=== PATIENT | female | born 1990 | race African-American/Black ===

== ENCOUNTER → 2020-06-23 14:45 | Outpatient (BNVA) | payer BC, SELFPAY | PROVIDERS: Visit Provider Family Medicine | DX: Z00.00 Encounter for general adult medical examination without abnormal findings (principal); Z13.6 Encounter for screening for cardiovascular disorders; R03.0 Elevated blood-pressure reading, without diagnosis of hypertension | CPT/HCPCS: 80053; 80061; 85025 ==

== ENCOUNTER → 2020-08-13 13:30 | Outpatient (BNVA) | payer BC, SELFPAY | DX: Z20.828 Contact with and (suspected) exposure to other viral communicable diseases (principal) | CPT/HCPCS: 87635 ==

== ENCOUNTER 2020-12-23 07:12 | Outpatient (CLI) | payer BC, SELFPAY ==
--- NOTE | 2020-12-23 07:00 | XR_ITS ---
WS: [id number] XR cervical spine 3V* [id number] REASON FOR EXAM: neck pain with radiation FINDINGS: Straightening of the normal lordosis of the cervical spine. No vertebral body abnormality identified. There is mild narrowing of the C5-C6 disc space with small anterior osteophytes. Remainder of the int ervertebral disc spaces are unremarkable. XR/XR cervical spine 3V* [id number] IMPRESSION: Minimal findings of degenerative spondylosis at C5-C6.
== END 2020-12-23 07:13 | disposition home or self-care (01) ==
LOC: RAD 07:19
PROVIDERS: PCP Family Medicine; Visit Provider Family Medicine
DX: M54.2 Cervicalgia (principal); M54.12 Radiculopathy, cervical region; M47.812 Spondylosis without myelopathy or radiculopathy, cervical region
CPT/HCPCS: 72040

== ENCOUNTER 2021-01-15 12:56 | Outpatient (CLI) | payer BC, SELFPAY ==
--- NOTE | 2021-01-15 13:01 | MR_ITS ---
WS: [id number] MRI CERVICAL SPINE NONCONTRAST AND CONTRAST TECHNIQUE: Sagittal T1, T2 and STIR imaging. Axial T2, gradient, and fiesta imaging. Post gadolinium imaging was obtained. CLINICAL INFORMATION: abnormal x ray COMPARISON: None. FINDINGS: Straightening of the normal cervical lordosis. No high-grade central canal stenosis. Cord signal is n ormal. No abnormal gadolinium enhancement. No suspicious lesions in the cervical cord. No enhancing l esions. No evidence of cord atrophy. Mild congenital central canal stenosis. C2-C3: Mild osteophytic ridging. Mild left and no significant right foraminal narrowing. C3-C4: Mild endplate osteophytic ridging. Mild bilateral bony foraminal narrowing left greater than r ight. Spinal canal is patent. C4-C5: Mild disc osteophyte complex with endplate ridging. Mild central canal stenosis. Mild to moder ate bilateral bony foraminal narrowing. Mild facet arthropathy. C5-C6: Disc osteophyte complex with endplate ridging. Mild central canal stenosis. Mild bilateral bon y foraminal narrowing. Mild facet arthropathy. C6-C7: Disc osteophyte complex with endplate ridging. Spinal canal is patent. Foramen are patent. C7-T1: No significant disc bulging. Spinal canal and foramen are patent. Visualized brain stem structures: Normal. Prevertebral soft tissues: Normal. A few prominent cervical chain lymph nodes likely reactive. MR/MR cervical spine wo/w [id number] IMPRESSION: 1. Straightening of the normal cervical lordosis with mild congenital spinal c anal narrowing. 2. Cord signal is normal. No high-grade central canal stenosis. 3. No enhancing lesions within the cervical cord. 4. Mild central canal stenosis C4-C6 as described above. 5. Mild bony foraminal narrowing more prominent at bilateral C3-C4, bilateral C4-5, and bilateral C5-6.
[2021-01-15] MEDS: gadobenate dimeglumine 20 mL vial IV (13:48)
== END 2021-01-15 12:57 | disposition home or self-care (01) ==
LOC: RADSHAW 12:57
PROVIDERS: PCP Family Medicine; Visit Provider Family Medicine
DX: R93.89 Abnormal findings on diagnostic imaging of other specified body structures (principal); M54.12 Radiculopathy, cervical region; M48.02 Spinal stenosis, cervical region
CPT/HCPCS: 72156; A9577

== ENCOUNTER → 2021-01-26 08:35 | Outpatient (BNVA) | payer BC, SELFPAY | PROVIDERS: PCP Family Medicine; Referring Provider Family Medicine; Visit Provider Anesthesiology Pain Medicine | DX: G89.29 Other chronic pain (principal); M25.511 Pain in right shoulder; M54.12 Radiculopathy, cervical region; M47.812 Spondylosis without myelopathy or radiculopathy, cervical region; M50.90 Cervical disc disorder, unspecified, unspecified cervical region; M79.601 Pain in right arm; M79.602 Pain in left arm; F12.90 Cannabis use, unspecified, uncomplicated | CPT/HCPCS: 99205 ==

== ENCOUNTER 2021-02-26 06:00 | Outpatient (RCR) | payer BC, SELFPAY | END 2021-03-28 23:59 | disposition home or self-care (01) | LOC: SPT 06:00 | PROVIDERS: PCP Family Medicine; Visit Provider Anesthesiology Pain Medicine | DX: G89.29 Other chronic pain (principal); M54.2 Cervicalgia | CPT/HCPCS: 97110; 97161 ==

== ENCOUNTER 2021-03-17 12:00 | Outpatient (CLI) | payer BC, SELFPAY | END 2021-03-17 12:01 | disposition home or self-care (01) | LOC: SLEEP 03-18 09:50 | PROVIDERS: PCP Family Medicine; Visit Provider Family Medicine | DX: G47.10 Hypersomnia, unspecified (principal) | CPT/HCPCS: G0399 ==

== ENCOUNTER → 2021-03-25 08:46 | Outpatient (BNVA) | payer BC, SELFPAY | PROVIDERS: PCP Family Medicine; Visit Provider Anesthesiology Pain Medicine | DX: F41.8 Other specified anxiety disorders (principal); G89.29 Other chronic pain; G47.33 Obstructive sleep apnea (adult) (pediatric); M47.812 Spondylosis without myelopathy or radiculopathy, cervical region; I10 Essential (primary) hypertension; M50.90 Cervical disc disorder, unspecified, unspecified cervical region; M54.12 Radiculopathy, cervical region; Z68.41 Body mass index [BMI] 40.0-44.9, adult; F17.219 Nicotine dependence, cigarettes, with unspecified nicotine-induced disorders; M25.512 Pain in left shoulder; Z71.6 Tobacco abuse counseling; Z71.89 Other specified counseling | CPT/HCPCS: 80053; 80061; 83036; 99213; 99214 ==

== ENCOUNTER 2021-03-29 06:00 | Outpatient (RCR) | payer BC, SELFPAY | END 2021-04-27 23:59 | disposition home or self-care (01) | LOC: SPT 06:00 | PROVIDERS: PCP Family Medicine; Visit Provider Anesthesiology Pain Medicine | DX: M54.2 Cervicalgia (principal); G89.29 Other chronic pain | CPT/HCPCS: 20560; 97110; 97530 ==

== ENCOUNTER 2021-04-15 07:34 | Emergency (ER) | payer BC, SELFPAY ==
[2021-04-15 07:36] VITALS: BP 155/83; PULSE 78; RESP 21; TEMP 36.1; O2SAT 100; BMI 41.5
--- NOTE | 2021-04-15 07:44 | W.ED.ABDPA2 ---
HPI - Abdominal Pain General: Chief Complaint: Abdominal Pain Stated Complaint: UCC sent PT possible Reaction to Meds Time Seen by Provider: 04/15/21 07:44 History of Present Illness: HPI narrative: 31-year-old female presents emergency room complaining abdominal pain. Patient has pelvic and lower abdominal pain that began overnight. She said several episodes of vomiting. No hematochezia melena hematemesis coffee-ground emesis no dysuria urgency or frequency. MD elicited complaint: abdominal pain Onset (ago): hour(s) Pain Consistency: constant Location: Diffuse Severity: moderate Quality: cramping Radiation: none Exacerbating factors: nothing Relieving factors: nothing Associated Symptoms: Reports GI cramping and poor appetite; Denies anorexia, belching, bloating, change in bowel habits, change in stool character, chills, coffee ground emesis, constipation, diarrhea, dyspepsia, dysuria, excessive flatus, fever(s), heartburn, hematochezia, hematuria, hematemesis, fecal incontinence, loose stools, melena, nausea, syncope and vomiting Review of Systems Const: Denies: fever(s) or chills ENMT: Denies: throat pain, ear or mastoid pain, nasal discharge or nasal congestion Card: Denies: syncope Resp: Denies: dyspnea, productive cough or non-productive cough GI: Reports: GI cramping; Denies: nausea, vomiting, hematemesis, coffee ground emesis, heartburn, diarrhea, constipation, bloating, belching, excessive flatus, fecal incontinence, change in bowel habits, change in stool character, hematochezia or melena : Denies: dysuria or hematuria Skin/Breast: Denies: rash or pruritus PFSH ED PFSH: Medical History Depression with anxiety Surgical History H/O section Times x 2 H/O knee surgery Left - removed a sewing needle H/O tubal ligation Family History Other Addiction CAD (coronary artery disease) Hypertension Psychiatric illness Social History Smoking and tobacco status: current every day smoker cigarettes Packs smoked per day: 0.50 Second hand smoke exposure: No Alcohol intake: current Alcohol intake frequency: holidays/special occasions only Desire information about alcohol rehabilitation?: No Physical Exam Const: COMMON NORMALS: patient oriented x3 and alert GENERAL APPEARANCE: cooperative, comfortable, well kempt and well developed NUTRITIONAL APPEARANCE: obese ORIENTATION/CONSCIOUSNESS: Yes awake, Yes oriented to person and Yes oriented to place HENMT: COMMON NORMALS: normocephalic, atraumatic, EAC's normal, TM's normal bilaterally, Normal external nose present, moist oral mucous membranes and oropharynx normal HEAD & SCALP: normocephalic and atraumatic NOSE: Normal external nose present EXTERNAL AUDITORY CANAL: EAC's normal TYMPANIC MEMBRANE: TM's normal bilaterally MOUTH: Normal oral and palatal mucosa present, lip normal and tongue normal THROAT: posterior oropharynx normal and tonsils normal Eye: COMMON NORMALS: Equal, round and reactive pupils present, EOMs intact bilaterally, conjunctivae normal and no scleral icterus CONJUNCTIVA: Yes conjunctivae normal PUPIL: Yes Equal, round and reactive pupils present Neck/C-Spine: COMMON NORMALS: full ROM, no lymphadenopathy, supple, no meningeal signs and Thyroid normal THYROID: Thyroid normal and asymmetrical Lymph: LYMPHATIC: no lymphadenopathy noted Resp: COMMON NORMALS: normal respiratory effort, No retractions, No use of accessory muscles and clear to auscultation bilaterally AUSCULTATION: clear to auscultation bilaterally Cardio: COMMON NORMALS: regular rate and regular rhythm RATE: regular rate RHYTHM: regular rhythm HEART SOUNDS: no murmurs GI: COMMON NORMALS: Normal to inspection, nondistended, normoactive bowel sounds present, Soft to palpation and No hepatosplenomegaly present PALPATION: Yes Soft to palpation and Yes No hepatosplenomegaly present : COMMON NORMALS: Yes no CVA tenderness BLADDER/KIDNEY EXAM: Yes no CVA tenderness Back/Pelvis: COMMON NORMALS: no CVA tenderness LUMBAR SPINE/LOWER BACK: Yes normal to inspection Extremity: COMMON NORMALS: no clubbing, cyanosis or edema, no calf tenderness and no pedal edema Neuro: COMMON NORMALS: patient oriented x3 SENSORIUM/ORIENTATION: Yes alert, Yes oriented to person and Yes oriented to place MENINGEAL SIGNS: Yes no meningeal signs Psych: APPEARANCE: Yes well kempt Skin: COMMON NORMALS: no rashes or lesions noted and turgor normal GENERAL SKIN EXAM: no rashes or lesions noted and turgor normal Course Vital Signs: Vital signs: Vital Signs Temperature 96.9 F L 04/15/21 07:36 Pulse Rate 75 04/15/21 08:02 Respiratory Rate 18 04/15/21 08:02 Blood Pressure 134/80 04/15/21 08:02 Pulse Oximetry 100 04/15/21 08:02 MDM - Abdominal Pain MDM Narrative: Medical decision making narrative: Reviewed imaging and labs discussed with the patient. We will discharge her home with hydroxyzine Zofran and Protonix. She is having a lot of anxiety over this issue. Suspect she may need to get further evaluation either with Becki or GI she is going to follow-up through her primary care doctor worsening problems she can return to the emergency room for now recommended she do clear liquid diet for 24 to 48 hours and advance return if has problems. Lab Data: Labs: Lab Results 04/15/21 04/15/21 04/15/21 08:20 08:20 08:40 WBC 12.3 10^3/uL H 10 ^3/uL (4.0-10.0) RBC 4.10 10^6/uL 10^6 /uL (4.1-5.3) Hgb 12.0 g/dL g/dL (11.5-15.3) Hct 36.4 % L % (37.0-47.0) MCV 88.8 fl fl (81-99) MCH 29.3 pg pg (28.0-34.0) MCHC 33.0 g/dL g/dL (30.0-36.0) RDW 13.2 % % (12.1-15.1) Plt Count 247 10^3/cmm 10^3 /cmm (130-400) MPV 11.5 fL H fL (7.4-10.4) Neut % (Auto) 86.5 % % Lymph % (Auto) 8.9 % % [place]quois % (Auto) 3.6 % % Eos % (Auto) 0.6 % % Baso % (Auto) 0.2 % % Neut # (Auto) 10.66 10^3/uL H 1 0^3/uL (1.8-7.7) Lymph # (Auto) 1.1 10^3/uL 10^3/ uL (0.8-4.8) [place] # (Auto) 0.5 10^3/uL 10^3/ uL (0.2-0.9) Eos # (Auto) 0.1 10^3/uL 10^3/ uL (0.0-0.8) Baso # (Auto) 0.0 10^3/uL 10^3/ uL (0.0-0.1) Nucleated RBC % (a uto) 0 % % Nucleated RBCs # 0.0 /100WBC /100W BC Sodium 136 mmol/L mmol/L (136-145) Potassium 3.2 mmol/L L mmol /L (3.5-5.1) Chloride 98 mmol/L mmol/L (98-107) Carbon Dioxide 21 mmol/L L mmol/ L (22-29) Anion Gap 20.2 H (5-19) BUN 8 mg/dL mg/dL (6-20) Creatinine 0.6 mg/dL mg/dL (0.5-0.9) GFR Calculation 143.0 mL/min H mL /min (90-130) Glucose 111 mg/dL mg/dL (65-115) Calculated Osmolal ity 281 mOsm/kg L mOs m/kg (285-295) Calcium 9.0 mg/dL mg/dL (8.5-10.5) Total Bilirubin 0.3 mg/dL mg/dL (0.15-1.2) AST 22 U/L U/L (0-32) ALT 30 U/L U/L (0-33) Alkaline Phosphata se 70 IU/L IU/L (35-105) Total Protein 7.9 g/dL g/dL (6.6-8.7) Albumin 4.5 g/dL g/dL (3.5-5.2) Globulin 3.4 g/dL g/dL (1.3-4.6) Lipase 20 U/L U/L (13-60) HCG, Qual Negative (Negative) Urine Color Urine Appearance Urine pH Ur Specific Gravit y Urine Protein Urine Glucose (UA) Urine Ketones Urine Blood Urine Nitrate Urine Bilirubin Prot Sulfosalicyli c Acd Urine Urobilinogen Ur Leukocyte Agatha ase Urine RBC Urine WBC Ur Squamous Epith Cells Amorphous Sediment Urine Bacteria 04/15/21 04/15/21 09:20 10:40 WBC RBC Hgb Hct MCV MCH MCHC RDW Plt Count MPV Neut % (Auto) Lymph % (Auto) [place]ois % (Auto) Eos % (Auto) Baso % (Auto) Neut # (Auto) Lymph # (Auto) [place]ois # (Auto) Eos # (Auto) Baso # (Auto) Nucleated RBC % (a uto) Nucleated RBCs # Sodium Potassium Chloride Carbon Dioxide Anion Gap BUN Creatinine GFR Calculation Glucose Calculated Osmolal ity Calcium Total Bilirubin AST ALT Alkaline Phosphata se Total Protein Albumin Globulin Lipase HCG, Qual Urine Color Red Straw (Yellow) (Yellow) Urine Appearance Cloudy Clear (CLEAR) (CLEAR) Urine pH 8 H 8 H (5-7) (5-7) Ur Specific Gravit y 1.005 1.005 (1.005-1.030) (1.005-1.030) Urine Protein Trace Neg (Negative) (Negative) Urine Glucose (UA) Norm Norm (Normal) (Normal) Urine Ketones Negative Negative (Negative) (Negative) Urine Blood 3+ H 2+ H (Negative) (Negative) Urine Nitrate Negative Negative (Negative) (Negative) Urine Bilirubin Neg Neg (Negative) (Negative) Prot Sulfosalicyli c Acd Negative Negative (Negative) (Negative) Urine Urobilinogen Norm mg/dL mg/dL Norm mg/dL mg/dL (Negative) (Negative) Ur Leukocyte Agatha ase Trace H Negative (Negative) (Negative) Urine RBC Too numerous to c nt /hpf H /hpf 0-4 /hpf H /hpf (0-2) (0-2) Urine WBC 5-10 /hpf H /hpf 0-4 /hpf H /hpf (0-5) (0-5) Ur Squamous Epith Cells 0-4 /hpf H /hpf 5-10 /hpf H /hpf (0-5) (0-5) Amorphous Sediment Not Reportable Not Reportable Urine Bacteria 1+ /hpf H /hpf Trace /hpf /hpf (NONE) (NONE) Discharge Plan Discharge Patient Disposition: Home Clinical Impression: Abdominal pain, Nausea & vomiting Condition: Stable Prescriptions: New Zofran 4 mg tablet 4 mg PO Q6H PRN (Reason: nausea and vomiting) Qty: 20 RF: 0 hydroxyzine HCl 25 mg tablet 25 mg PO QID PRN (Reason: anxiety) Qty: 14 RF: 0 Protonix 40 mg tablet,delayed release (DR/EC) 40 mg PO DAILY 28 Days Qty: 30 RF: 0 No Action methocarbamol 750 mg tablet 750 mg PO BID Qty: 60 RF: 0 hydrochlorothiazide 12.5 mg tablet 12.5 mg PO QAM Qty: 90 RF: 0 nicotine [Nicoderm CQ] 14 mg/24 hr patch 24 hour 1 patch transdermal Q24H Qty: 28 RF: 1 ibuprofen 200 mg Tablet 400 mg PO Q4H PRN (Reason: Pain) RF: 0 albuterol sulfate 90 mcg/actuation HFA aerosol inhaler 2 puff INHALATION Q6H PRN (Reason: Shortness Of Breath) RF: 0 sertraline 100 mg tablet 200 mg PO QAM RF: 0 amlodipine 10 mg tablet 10 mg PO BEDTIME RF: 0 gabapentin 300 mg capsule 300 mg PO QAM RF: 0 Discharge Orders: Discharge ED (Routine); Ordered 04/15/21 Ordered By: Matthew Tee Referrals: Jenifer Chatterjee DO [Primary Care Provider] - Discharge Diet: Clear Liquid Discharge Activity: Increase activity as tolerated Patient Instructions: Abdominal Pain (ED), Opioid Safety Activity Restrictions/Additional Instructions: Clear liquid diet for 24 to 48 hours advance as tolerated ondansetron as needed for nausea. Worsening symptoms return. Coding Level of Care Code ED [employer] for [employer]
[2021-04-15 08:02] VITALS: BP 134/80; PULSE 75; RESP 18; O2SAT 100
[2021-04-15] MEDS: sodium chloride 0.9% 1,000 ML 999 ML IV (08:20)
[2021-04-15] MEDS: ondansetron 2 mg/ML SDV 2 mL 4 MG IVP (08:34)
[2021-04-15 08:44] LABS: Basophils % 0.2 %; Eosinophils # 0.1 10^3/uL (0.0-0.8); Eosinophils % 0.6 %; Hematocrit 36.4 % (37.0-47.0); Lymphocytes # 1.1 10^3/uL (0.8-4.8); Lymphocytes % 8.9 %; Mean Corpuscular Hemoglobin 29.3 pg (28.0-34.0); Mean Corpuscular Volume 88.8 fl (81-99); Mean Platelet Volume 11.5 fL (7.4-10.4); Monocytes # 0.5 10^3/uL (0.2-0.9); Monocytes % 3.6 %; Neutrophils # 10.66 10^3/uL (1.8-7.7); Neutrophils % 86.5 %; Nucleated Red Blood Cells % 0 %; Platelet Count 247 10^3/cmm (130-400); Red Cell Distribution Width 13.2 % (12.1-15.1); White Blood Count 12.3 10^3/uL (4.0-10.0)
[2021-04-15 08:49] LABS: Alanine Aminotransferase 30 U/L (0-33); Albumin Level 4.5 g/dL (3.5-5.2); Alkaline Phosphatase 70 IU/L (35-105); Aspartate Amino Transferase 22 U/L (0-32); Blood Urea Nitrogen 8 mg/dL (6-20); Carbon Dioxide 21 mmol/L (22-29); Chloride 98 mmol/L (98-107); Globulin 3.4 g/dL (1.3-4.6); Glucose 111 mg/dL (65-115); HCG, Serum Qual Negative (Negative); Lipase 20 U/L (13-60); Osmolality Calculated 281 mOsm/kg (285-295); Sodium 136 mmol/L (136-145); Total Bilirubin 0.3 mg/dL (0.15-1.2); Total Protein 7.9 g/dL (6.6-8.7)
--- NOTE | 2021-04-15 08:53 | CT_ITS ---
WS: [id number] Exam: CT abdomen pelvis w con* [id number] Date/Time of Exam: 04/15/2021 9:00 AM Reason For Exam: abd pain DLP: 1715.[address] scans at [facility] use at least one of these dose optimization techniques: automated e xposure control; mA and/or kV adjustment per patient size (includes targeted exams where dose is matc hed to clinical indication); or iterative reconstruction. Small groundglass density in the left lower lobe nonspecific. The liver, gallbladder, stomach, spleen and pancreas appear normal. The abdominal aorta is normal in caliber. The portal vein and IVC are pa tent. Normal kidneys and adrenal glands. No lymphadenopathy. No free air. Small bowel loops are not d ilated. Normal appendix visualized. No significant large bowel abnormality seen. Normal uterus and ov eriln. No pelvic mass or adenopathy. Intact urinary bladder. Small amount of fluid and air in the cer vix. Etiology is undetermined. Regional bony structures are intact. No significant abdominal wall def ect. CT/CT abdomen pelvis w con* [id number] IMPRESSION: 1. No mass, lymphadenopathy or acute finding. 2. Small amount of fluid and air in the cervix. Etiology is undetermined. 3. Small groundglass density in the left lung base probably representing depend ent change.
[2021-04-15 08:54] LABS: Anion Gap 20.2 (5-19); Potassium 3.2 mmol/L (3.5-5.1)
[2021-04-15] MEDS: iohexol 300 mg/mL 100 mL Btl IV (09:15)
[2021-04-15 10:07] LABS: Urine Appearance Cloudy (CLEAR); Urine Color Red (Yellow); pH Urine 8 (5-7)
[2021-04-15 10:08] LABS: Add Urine Microscopic? YES; Bilirubin Urine Neg (Negative); Blood Urine 3+ (Negative); Glucose Urine UA Norm (Normal); Ketones Urine Negative (Negative); Nitrate Urine Negative (Negative); Protein Urine Trace (Negative); RBC Urine TOO NUMEROUS TO CNT /hpf (0-2); Specific Gravity, Urine 1.005 (1.005-1.030); Squamous Epithelial Cell Urine 0-4 /hpf (0-5); Sulfosalicylic Acid Urine Negative (Negative); Urobilinogen Urine Norm (Negative)
[2021-04-15 10:09] LABS: Add Urine Culture? Yes; Bacteria Urine 1+ /hpf
[2021-04-15 10:10] LABS: Leukocyte Esterase Urine Trace (Negative)
[2021-04-15 11:29] LABS: Add Urine Culture? No; Bacteria Urine TRACE /hpf; Bilirubin Urine Neg (Negative); Blood Urine 2+ (Negative); Glucose Urine UA Norm (Normal); Ketones Urine Negative (Negative); Leukocyte Esterase Urine Negative (Negative); Nitrate Urine Negative (Negative); Protein Urine Neg (Negative); RBC Urine 0-4 /hpf (0-2); Specific Gravity, Urine 1.005 (1.005-1.030); Sulfosalicylic Acid Urine Negative (Negative); Urine Appearance Clear (CLEAR); Urine Color Straw (Yellow); Urobilinogen Urine Norm (Negative); WBC Urine 0-4 /hpf (0-5); pH Urine 8 (5-7)
== END 2021-04-15 12:17 | disposition home or self-care (01) ==
PROVIDERS: Emergency Provider Family Medicine; PCP Family Medicine
DX: R10.2 Pelvic and perineal pain (principal); R11.2 Nausea with vomiting, unspecified; F17.210 Nicotine dependence, cigarettes, uncomplicated; F41.8 Other specified anxiety disorders
CPT/HCPCS: 74177; 80053; 81001; 83690; 84703; 85025; 87086; 96361; 96374; 99284; J2405; J7030; Q9967

== ENCOUNTER 2021-04-28 06:00 | Outpatient (RCR) | payer BC, SELFPAY | END 2021-05-28 23:59 | disposition home or self-care (01) | LOC: SPT 06:00 | PROVIDERS: PCP Family Medicine; Visit Provider Anesthesiology Pain Medicine | DX: M54.2 Cervicalgia (principal); G89.29 Other chronic pain | CPT/HCPCS: 97110 ==

== ENCOUNTER 2021-05-29 06:00 | Outpatient (RCR) | payer BC, SELFPAY | END 2021-06-28 23:59 | disposition home or self-care (01) | LOC: SPT 06:00 | PROVIDERS: PCP Family Medicine; Visit Provider Anesthesiology Pain Medicine | DX: M54.2 Cervicalgia (principal); G89.29 Other chronic pain | CPT/HCPCS: 97110 ==

== ENCOUNTER → 2021-07-08 09:30 | Outpatient (BNVA) | payer BC, SELFPAY | PROVIDERS: PCP Family Medicine; Visit Provider Family Medicine | DX: R20.2 Paresthesia of skin (principal); E53.8 Deficiency of other specified B group vitamins | CPT/HCPCS: 82607; 82746; 84443 ==

== ENCOUNTER 2021-11-30 11:16 | Outpatient (CLI) | payer BC, SELFPAY ==
--- NOTE | 2021-11-30 | US_ITS ---
DIAGNOSTIC BILATERAL DIGITAL BREAST TOMOSYNTHESIS MAMMOGRAPHY WITH CAD LEFT breast ultrasound, limited HISTORY: left breast mass COMPARISON: None available. TECHNIQUE: Bilateral craniocaudad, and mediolateral views are submitted with tomosynthesis and SM. LEFT MLO. Computer aided detection utilized. Breast composition: There are scattered areas of fibroglandular density. Area of fibroglandular thickening in the central mid to anterior LEFT breast. There is some very minimal distortion of the soft tissues. This abnormal soft tissue measures 6.8 x 5.9 cm. This is asymmetric to the RIGHT breast. This is the area of the palpable abnormality. No nipple retraction. LEFT breast ultrasound, limited. LEFT breast at 3:00, 3 cm from nipple demonstrates a very poorly visualized hypoechoic mass with shadowing. This is the area of abnormality seen on mammography but also this area is palpable. This measures at least 1.7 x 1.3 x 1.6 cm. The margins are very poorly visualized in this may extend beyond this measurement also. In the LEFT axilla there is a lymph node with an asymmetric cortex. Increased vascularity within the cortex. IMPRESSION: BI-RADS: 4-Suspicious Finding-Biopsy Should Be Considered FOLLOW UP: Biopsy Recommended 1. Ultrasound-guided biopsy recommended of the hypoechoic mass with ill- defined margins at 3:00. 2. Ultrasound-guided biopsy recommended of the mildly abnormal LEFT axillary lymph node. Notified Jenifer Chatterjee DO at 11/30/2021 2:12 PM. Message LEFT on the nurse answering line MTDD
--- NOTE | 2021-11-30 11:26 | MM_ITS ---
WS: [id number] DIAGNOSTIC BILATERAL DIGITAL BREAST TOMOSYNTHESIS MAMMOGRAPHY WITH CAD LEFT breast ultrasound, limited HISTORY: left breast mass COMPARISON: None available. TECHNIQUE: Bilateral craniocaudad, and mediolateral views are submitted with tomosynthesis and SM. AICHA MI MLO. Computer aided detection utilized. Breast composition: There are scattered areas of fibroglandular density. Area of fibroglandular thick ening in the central mid to anterior LEFT breast. There is some very minimal distortion of the soft t issues. This abnormal soft tissue measures 6.8 x 5.9 cm. This is asymmetric to the RIGHT breast. This is the area of the palpable abnormality. No nipple retraction. LEFT breast ultrasound, limited. LEFT breast at 3:00, 3 cm from nipple demonstrates a very poorly visualized hypoechoic mass with shad owing. This is the area of abnormality seen on mammography but also this area is palpable. This measu res at least 1.7 x 1.3 x 1.6 cm. The margins are very poorly visualized in this may extend beyond thi s measurement also. In the LEFT axilla there is a lymph node with an asymmetric cortex. Increased vas cularity within the cortex. MM/[place] [id number] IMPRESSION: BI-RADS: 4-Suspicious Finding-Biopsy Should Be Considered FOLLOW UP: Biopsy Recommended 1. Ultrasound-guided biopsy recommended of the hypoechoic mass with ill-define d margins at 3:00. 2. Ultrasound-guided biopsy recommended of the mildly abnormal LEFT axillary l ymph node. Notified Jenifer Chatterjee DO at 11/30/2021 2:12 PM. Message LEFT on the nurse an swering line.
== END 2021-11-30 11:17 | disposition home or self-care (01) ==
PROVIDERS: PCP Family Medicine; Visit Provider Family Medicine
DX: N63.20 Unspecified lump in the left breast, unspecified quadrant (principal)
CPT/HCPCS: 76642; 77061

== ENCOUNTER 2021-12-20 11:42 | Outpatient (CLI) | payer BC, SELFPAY ==
--- NOTE | 2021-12-20 | US_ITS ---
WS: [id number] ULTRASOUND-GUIDED LEFT BREAST BIOPSY CLINICAL INFORMATION: MASS 3:00 LEFT BREAST COMPARISON: None. FINDINGS: The procedure including risks, benefits, and complications were discussed with the patient who agreed to proceed. Using sterile technique patient was prepped and draped in the usual sterile fashion. Aft er 1% lidocaine utilizing real-time ultrasound guidance 5 14-gauge cores were obtained of the LEFT br east lesion at the 3 o'clock position. Subsequently a titanium clip was placed in the biopsy cavity. No immediate complications. Subsequently the abnormal-appearing LEFT axillary lymph node was biopsied with 3 biopsy samples obtai mikayla. Pathology demonstrates A. Breast, left breast mass , ultrasound-guided needle core biopsies: - Duct ectasia with idiopathic granulomatous mastitis. - Negative for malignancy. - See comment. B. Lymph node, left axilla , ultrasound-guided biopsy: - Reactive follicular hyperplasia. - Negative for malignancy. US/US biopsy lymph node breast/ax IMPRESSION: 1. Uncomplicated ultrasound-guided LEFT breast and LEFT axillary biopsy. 2. The pathology demonstrates idiopathic granulomatous mastitis corresponding to the breast mass. LEFT axillary biopsy demonstrates reactive follicular hyper plasia. No evidence for malignancy 3. Recommend 6 month follow-up LEFT breast diagnostic mammography and ultrasou nd to confirm stability of the LEFT breast lesion and LEFT axillary lymph node. BI-RADS: 2-Benign FOLLOW UP: 6 Month Follow-up
--- NOTE | 2021-12-20 11:49 | US_ITS ---
WS: [id number] ULTRASOUND-GUIDED LEFT BREAST BIOPSY CLINICAL INFORMATION: MASS 3:00 LEFT BREAST COMPARISON: None. FINDINGS: The procedure including risks, benefits, and complications were discussed with the patient who agreed to proceed. Using sterile technique patient was prepped and draped in the usual sterile fashion. Aft er 1% lidocaine utilizing real-time ultrasound guidance 5 14-gauge cores were obtained of the LEFT br east lesion at the 3 o'clock position. Subsequently a titanium clip was placed in the biopsy cavity. No immediate complications. Subsequently the abnormal-appearing LEFT axillary lymph node was biopsied with 3 biopsy samples obtai mikayla. Pathology demonstrates A. Breast, left breast mass , ultrasound-guided needle core biopsies: - Duct ectasia with idiopathic granulomatous mastitis. - Negative for malignancy. - See comment. B. Lymph node, left axilla , ultrasound-guided biopsy: - Reactive follicular hyperplasia. - Negative for malignancy. US/[place] [id number] IMPRESSION: 1. Uncomplicated ultrasound-guided LEFT breast and LEFT axillary biopsy. 2. The pathology demonstrates idiopathic granulomatous mastitis corresponding to the breast mass. LEFT axillary biopsy demonstrates reactive follicular hyper plasia. No evidence for malignancy 3. Recommend 6 month follow-up LEFT breast diagnostic mammography and ultrasou nd to confirm stability of the LEFT breast lesion and LEFT axillary lymph node. BI-RADS: 2-Benign FOLLOW UP: 6 Month Follow-up
== END 2021-12-20 11:43 | disposition home or self-care (01) ==
PROVIDERS: PCP Family Medicine; Visit Provider Family Medicine
DX: N63.21 Unspecified lump in the left breast, upper outer quadrant (principal); N60.42 Mammary duct ectasia of left breast; N61.22 Granulomatous mastitis, left breast
CPT/HCPCS: 19083; 38505; 76942; 88305; 88312

== ENCOUNTER → 2022-09-05 14:03 | Outpatient (BNVA) | payer BC, SELFPAY | PROVIDERS: PCP Family Medicine; Visit Provider Family Medicine | DX: Z13.6 Encounter for screening for cardiovascular disorders (principal) | CPT/HCPCS: 80053; 80061; 82607; 82728; 83550; 85025 ==

== ENCOUNTER → 2023-01-10 15:53 | Outpatient (BNVA) | payer BC, SELFPAY | PROVIDERS: PCP Family Medicine; Visit Provider Family Medicine | DX: K62.5 Hemorrhage of anus and rectum (principal); D50.9 Iron deficiency anemia, unspecified | CPT/HCPCS: 82270; 82728; 83550; 85025 ==

== ENCOUNTER 2023-01-29 16:29 | Emergency (ER) | payer BC, SELFPAY ==
[2023-01-29 16:40] VITALS: BP 176/92; PULSE 86; RESP 17; TEMP 37.2; O2SAT 97; BMI 43.8
--- NOTE | 2023-01-29 16:51 | W.ED.WOUNDLC ---
HPI - Wound/Laceration General: Chief Complaint: Wound/Laceration Stated Complaint: cut tip of finger on right hand Time Seen by Provider: 01/29/23 16:32 History of Present Illness: Patient is a 32-year-old [id number] female that presents to the emergency department after sustaining an avulsion of the soft tissue at the tip of her finger on her left hand. Patient states she was cutting some vegetables?potatoes when she accidentally sliced off the tip of the finger. It is no more than 2 mm deep. At the time of her evaluation here in the emergency department there is no bleeding. Patient is up-to-date on tetanus Review of Systems General: Reports: 10 or more systems reviewed and unremarkable except in HPI and below PFSH ED PFSH: Medical History Acute pharyngitis Upper respiratory infection with cough and congestion Surgical History H/O section Times x 2 H/O knee surgery Left - removed a sewing needle H/O tubal ligation Family History Other Addiction CAD (coronary artery disease) Hypertension Psychiatric illness Social History Smoking and tobacco status: current every day smoker cigarettes Packs smoked per day: 0.50 Second hand smoke exposure: No Alcohol intake: current Alcohol intake frequency: holidays/special occasions only Desire information about alcohol rehabilitation?: No Substance/Drug Use: current Substance/Drug use frequency: daily Physical Exam Const: COMMON NORMALS: no acute distress, patient oriented x3 and alert GENERAL APPEARANCE: cooperative ORIENTATION/CONSCIOUSNESS: Yes awake, Yes oriented to person, Yes oriented to place and Yes oriented to time HENMT: COMMON NORMALS: normocephalic and atraumatic HEAD & SCALP: normocephalic and atraumatic FACE & SINUS: normal facial exam MOUTH: Normal oral and palatal mucosa present THROAT: posterior oropharynx normal Eye: COMMON NORMALS: Equal, round and reactive pupils present, EOMs intact bilaterally, conjunctivae normal and no scleral icterus GENERAL EYE: appearance normal, both eyes and all related structures ALIGNMENT: Yes alignment normal PERIORBITAL: periorbital findings normal CONJUNCTIVA: Yes conjunctivae normal PUPIL: Yes Equal, round and reactive pupils present Neck/C-Spine: COMMON NORMALS: full ROM GENERAL: Yes normal visual inspection Lymph: LYMPHATIC: no lymphadenopathy noted Chest: COMMONS NORMALS: normal inspection of the chest Breast/axilla inspection: Yes no chest deformity, asymmetry, normal contours, no nodules, masses, tenderness Resp: COMMON NORMALS: normal respiratory effort, No retractions and No use of accessory muscles EFFORT & INSPECTION: Yes able to speak in complete sentences and Yes symmetric chest movement Cardio: COMMON NORMALS: Peripheral pulses 2+ throughout PERIPHERAL PULSES: Peripheral pulses 2+ throughout GI: COMMON NORMALS: Normal to inspection, nondistended, normoactive bowel sounds present INSPECTION: Yes normal to inspection RECTAL EXAM: deferred Extremity: COMMON NORMALS: normal to inspection GENERAL: Yes normal exam except as noted Neuro: COMMON NORMALS: patient oriented x3 SENSORIUM/ORIENTATION: Yes alert, Yes oriented to person, Yes oriented to place and Yes oriented to time CRANIAL NERVES: Yes CN normal except as noted Psych: COMMON NORMALS: mental status grossly normal, Normal thought process present, cooperative, activity/motor behavior normal, denies homicidal ideation and denies suicidal ideation THOUGHT PROCESS: Normal thought process present Skin: COMMON NORMALS: no rashes or lesions noted, no wounds and turgor normal GENERAL SKIN EXAM: no rashes or lesions noted and turgor normal Course Vital Signs: Vital signs: Vital Signs Temperature 98.9 F 01/29/23 16:40 Pulse Rate 86 01/29/23 16:40 Respiratory Rate 17 01/29/23 16:40 Blood Pressure 176/92 01/29/23 16:40 Pulse Oximetry 97 01/29/23 16:40 Oxygen Delivery Me thod Room Air 01/29/23 16:40 MDM - Wound/Laceration Medical Decision Making Patient was evaluated in the emergency department due to a fingertip injury. Sustained while cutting vegetables. Patient was very excited to tell me that she does not get any blood in the vegetables. She is up-to-date on tetanus Fortunately the way she cut the tip off it is not salvageable. We are going to dress her with Xeroform and nonstick dressings. I have advised her to keep the area clean and dry. She should use finger condoms when cooking or working with chemicals. Otherwise she can leave it open to help dry it out so it scabs over more quickly. Patient can follow-up with primary care doctor as needed All questions answered Discharge Plan Discharge Patient Disposition: Home Clinical Impression: Fingertip avulsion Condition: Stable Prescriptions: No Action brexpiprazole 2 mg tablet 2 mg PO DAILY Qty: 90 1RF sertraline [Zoloft] 50 mg tablet 50 mg PO DAILY Qty: 90 1RF sertraline [Zoloft] 100 mg tablet 100 mg PO DAILY Qty: 90 1RF Rx Instructions: Take with 50 mg pill ferrous sulfate [Iron (ferrous sulfate)] 325 mg (65 mg iron) tablet 325 mg PO BID Qty: 180 0RF (DME) AUTO-TRIRRATION CPAP SETTING 6-14CM See Rx Instructions .Route .MEDSUPPLY Qty: 1 0RF Rx Instructions: As directed Discharge Orders: Discharge ED (Routine); Ordered 01/29/23 Ordered By: Cholo Mc Referrals: Jenifer Chatterjee DO [Primary Care Provider] - Discharge Diet: Advance as tolerated Discharge Activity: Resume usual activity Patient Instructions: Finger Laceration (ED), Pain Management Coding Level of Care Code ED Dispatcher [employer] for Mamie Segura
== END 2023-01-29 17:10 | disposition home or self-care (01) ==
PROVIDERS: Emergency Provider Nurse Practitioner; PCP Family Medicine
DX: S61.212A Laceration without foreign body of right middle finger without damage to nail, initial encounter (principal); W26.0XXA Contact with knife, initial encounter; Y93.G1 Activity, food preparation and clean up
CPT/HCPCS: 99282

== ENCOUNTER → 2023-02-08 16:00 | Outpatient (BNVA) | payer BC, SELFPAY | PROVIDERS: PCP Family Medicine; Visit Provider Nurse Practitioner Women's Health | DX: N92.6 Irregular menstruation, unspecified (principal) | CPT/HCPCS: 83036; 83525; 84146; 84402; 84439; 84443; 84481 ==

== ENCOUNTER 2023-02-23 14:46 | Outpatient (CLI) | payer BC, SELFPAY ==
--- NOTE | 2023-02-23 14:58 | MM_ITS ---
WS: [id number] BILATERAL 3D TOMOSYNTHESIS DIGITAL DIAGNOSTIC MAMMOGRAPHY WITH CAD CLINICAL INFORMATION: mass left breast F/U HISTORY: 6-month follow-up post biopsy COMPARISON: 12/20/2021 TECHNIQUE: Bilateral CC, MLO, and ML views. FINDINGS: Scattered fibroglandular densities bilaterally. Again seen is the fibroglandular parenchymal thickeni ng in the central LEFT mid anterior breast with associated distortion. This measures approximately 7 x 6 cm in maximum dimension and is unchanged in appearance. Biopsy clip LEFT breast. RIGHT breast is unchanged and unremarkable ULTRASOUND BREAST LEFT TECHNIQUE: Ultrasound left breast focused area of concern. 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 Ultrasound LEFT breast at the 3 o'clock position 3 cm from the nipple. Again seen is the heterogeneou s hypoechoic ill-defined shadowing density which appears slightly improved compared to the prior stud y. This was previously biopsied. No evidence of progression. Findings are stable to improved compared to 12/20/2021 Previously described and biopsied LEFT axillary lymph node is stable in appearance with cortical thic kening. No new or progressed lymph nodes. IMPRESSION: MM/[place] [id number] BI-RADS: 2-Benign FOLLOW UP: Age 42 Recommend annual screen mammography age 42.
== END 2023-02-23 14:47 | disposition home or self-care (01) ==
LOC: RAD 14:47
PROVIDERS: PCP Family Medicine; Visit Provider Family Medicine
DX: N63.21 Unspecified lump in the left breast, upper outer quadrant (principal); N61.23 Granulomatous mastitis, bilateral breast
CPT/HCPCS: 76642; 77062; G0279

== ENCOUNTER 2023-03-08 07:58 | Day surgery (SDC) | payer BC, SELFPAY ==
[2023-03-06 10:24] VITALS: BMI 43.2
--- NOTE | 2023-03-08 08:27 | ANES.PREANE2 ---
Pre-Anesthetic Assessment Height/Weight: Height 1.7 m Weight 125.191 kg Operation Date: 03/08/23 08:45 Proposed Procedures p [id number] egd [id number] colon K92.1 ,D50.9(Not Applicable) - Chandana Rowe DO s Colonoscopy(Not Applicable) - Chandana Rowe DO Familial anesthetic complications: none Was Beta Tim taken within 24 hours: N/A Was Clonidine taken within 24 hours: N/A Social Tobacco and No alcohol daily MJ Exam alert and oriented x 3 Airway Submandibular: within normal limits Cervical ROM: within normal limits Dentition: full History/ROS No significant history except as noted Pulmonary Sleep Apnea CV/HEM Hypertension (doesnt take meds) None reported Hepatic None reported GI None reported Metabolic Morbid Obesity [facility] [place] [facility] [place] None reported Anesthetic Plan ASA status: 3 Anesthesia: Anesthesia Evaluation, General and MAC Medications/Allergies Home Medications Medication Instructions Recorded Confirmed Last Taken Type ferrous sulfate 325 mg (65 mg 325 mg PO BID #180 tabs 09/08/22 03/06/23 03/06/23 Rx iron) tablet (Iron (ferrous sulfate)) AUTO-TRIRRATION CPAP SETTING 6-14CM #1 ea 09/21/22 03/08/23 Unknown Rx brexpiprazole 2 mg tablet 2 mg PO DAILY #90 tabs 11/07/22 03/06/23 03/06/23 Rx sertraline 100 mg tablet (Zoloft) 100 mg PO DAILY #90 tabs 11/07/22 03/06/23 03/06/23 Rx sertraline 50 mg tablet (Zoloft) 50 mg PO DAILY #90 tabs 11/07/22 03/06/23 03/06/23 Rx norelgestromin 150 mcg-e.estradiol 1 patch transdermal Q7D #3 ea 02/09/23 03/06/23 Unknown Rx 35 mcg/24 hr weekly transderm patch (Xulane) Allergies Allergy/AdvReac Type Severity Reaction Status Date / Time No Known Allergies Allergy Verified 03/08/23 08:11 [facility] Anesthesia Medical History Acute pharyngitis Upper respiratory infection with cough and congestion Surgical History H/O section Times x 2 H/O knee surgery Left - removed a sewing needle H/O tubal ligation Family History Other Addiction CAD (coronary artery disease) Hypertension Psychiatric illness Social History Smoking and tobacco status: current every day smoker cigarettes Packs smoked per day: 0.50 Second hand smoke exposure: No Alcohol intake: current Alcohol intake frequency: holidays/special occasions only Desire information about alcohol rehabilitation?: No Substance/Drug Use: current Substance/Drug use frequency: daily Female Reproductive History Date of last menstrual period: 02/26/23 Data Anesthesia Cardiac Studies: No Data to Display
[2023-03-08] MEDS: sodium chloride 0.9% 1,000 ML 30 ML IV (08:33)
[2023-03-08 08:36] VITALS: BP 130/68; PULSE 86; RESP 18; TEMP 36.2; O2SAT 99
--- NOTE | 2023-03-08 08:38 | PM.HP ---
Providers/Chief Complaint Primary Care Provider: Jenifer Chatterjee DO Chief Complaint: K92.1, D50.9 History of Present Illness Obey Wilkinson is a 33 year old female Review of Systems General: Reports: 10 or more systems reviewed and unremarkable except in HPI and below Medications/Allergies Home Medications Medication Instructions Recorded Confirmed Last Taken Type ferrous sulfate 325 mg (65 mg 325 mg PO BID #180 tabs 09/08/22 03/06/23 03/06/23 Rx iron) tablet (Iron (ferrous sulfate)) AUTO-TRIRRATION CPAP SETTING 6-14CM #1 ea 09/21/22 03/08/23 Unknown Rx brexpiprazole 2 mg tablet 2 mg PO DAILY #90 tabs 11/07/22 03/06/23 03/06/23 Rx sertraline 100 mg tablet (Zoloft) 100 mg PO DAILY #90 tabs 11/07/22 03/06/23 03/06/23 Rx sertraline 50 mg tablet (Zoloft) 50 mg PO DAILY #90 tabs 11/07/22 03/06/23 03/06/23 Rx norelgestromin 150 mcg-e.estradiol 1 patch transdermal Q7D #3 ea 02/09/23 03/06/23 Unknown Rx 35 mcg/24 hr weekly transderm patch (Xulane) Allergies Allergy/AdvReac Type Severity Reaction Status Date / Time No Known Allergies Allergy Verified 03/08/23 08:11 PFSH Acute PFSH: Medical History Acute pharyngitis Upper respiratory infection with cough and congestion Surgical History H/O section Times x 2 H/O knee surgery Left - removed a sewing needle H/O tubal ligation Family History Other Addiction CAD (coronary artery disease) Hypertension Psychiatric illness Social History Smoking and tobacco status: current every day smoker cigarettes Packs smoked per day: 0.50 Second hand smoke exposure: No Alcohol intake: current Alcohol intake frequency: holidays/special occasions only Desire information about alcohol rehabilitation?: No Substance/Drug Use: current Substance/Drug use frequency: daily Female Reproductive History: Date of last menstrual period: 02/26/23 Vitals/I&O/Wt Last Vital Signs Temp 97.2 F L 03/08/23 08:36 Pulse 86 03/08/23 08:36 Resp 18 03/08/23 08:36 BP 130/68 03/08/23 08:36 Pulse Ox 99 03/08/23 08:36 O2 Del Method Room Air 03/08/23 08:36 Weight last 48 hrs Weight 276 lb A&P Assessment and plan (1) Iron deficiency anemia: Qualifiers: Iron deficiency anemia type: chronic blood loss Qualified Code(s): D50.0 - Iron deficiency anemia secondary to blood loss (chronic) (2) GI bleed: Plan EGD and colonoscopy Attestations Medical Necessity Statement*: Home Coding Level of Care Code Acute Code for [facility] Fwd Diagnoses Iron deficiency anemia D50.0 Iron deficiency anemia type: chronic blood loss GI bleed K92.2
[2023-03-08 08:42] LABS: OR HCG Qualitative Urine Negative (Negative)
[2023-03-08 09:10] VITALS: BP 167/99; PULSE 93; RESP 16; TEMP 36.2; O2SAT 99
[2023-03-08 09:21] VITALS: BP 141/98; PULSE 93; RESP 16; O2SAT 99
--- NOTE | 2023-03-08 09:21 | ANE.PACU2 ---
Inpatient post-anesthesia follow up: Airway intact: Yes Vital signs: Temperature 97.1 F Pulse Rate 93 Respiratory Rate 16 Blood Pressure 167/99 Pulse Oximetry 99 Oxygen Delivery Me thod Room Air Oxygen Flow Rate Fraction of Inspir ed Oxygen Hydration adequate: Yes Nausea and vomiting: No Pain level: 1 Mental status: Baseline
== END 2023-03-08 09:55 | disposition home or self-care (01) ==
PROVIDERS: Anesthesiology; PCP Family Medicine; Visit Provider Surgery
PROC: 0DJ08ZZ Inspection of Upper Intestinal Tract, Via Natural or Artificial Opening Endoscopic (ICD-10-PCS; CPT 43235; principal; 2023-03-08 08:45)
PROC: 0DJD8ZZ Inspection of Lower Intestinal Tract, Via Natural or Artificial Opening Endoscopic (ICD-10-PCS; CPT 45378; 2023-03-08 08:45)
DX: K92.1 Melena (principal); D50.9 Iron deficiency anemia, unspecified; K64.8 Other hemorrhoids; K44.9 Diaphragmatic hernia without obstruction or gangrene; G47.30 Sleep apnea, unspecified; I10 Essential (primary) hypertension; F17.210 Nicotine dependence, cigarettes, uncomplicated
CPT/HCPCS: 43235; 45378; 81025; 84703; J2704; J3010; J7030

== ENCOUNTER → 2023-03-14 10:18 | Outpatient (BNVA) | payer BC, SELFPAY | PROVIDERS: PCP Family Medicine; Visit Provider Nurse Practitioner Women's Health | DX: N92.6 Irregular menstruation, unspecified (principal); N94.6 Dysmenorrhea, unspecified | CPT/HCPCS: 76830 ==

== ENCOUNTER → 2023-08-08 10:51 | Outpatient (BNVA) | payer BC, SELFPAY | PROVIDERS: PCP Family Medicine; Visit Provider Family Medicine | DX: Z13.6 Encounter for screening for cardiovascular disorders (principal); D50.9 Iron deficiency anemia, unspecified; D50.0 Iron deficiency anemia secondary to blood loss (chronic); I10 Essential (primary) hypertension | CPT/HCPCS: 82728; 83550; 85025 ==

== ENCOUNTER 2023-08-28 09:32 | Emergency (ER) | payer BC, SELFPAY ==
--- NOTE | 2023-08-28 09:44 | XR_ITS ---
WS: [id number] Examination: XR chest 1V portable [id number] Reason for Exam: sob, suspected right middle lobe pneumonitis. Date: August 28, 2023 Comparison: August 29, 2019 Findings: The heart appears prominent which may be related to the AP portable technique. The mediastinum is not widened There is no pulmonary edema or effusion. No dense consolidation is identified. Impression: No dense consolidation is appreciated. PA and lateral films are recommended for better visualization of the right middle lobe as well as the heart size.
--- NOTE | 2023-08-28 09:45 | ED_ITS ---
HPI - SOB/Dyspnea 2 General: Chief Complaint: Allergic Reaction Stated Complaint: possible allergic reaction Time Seen by Provider: 08/28/23 09:36 Source: patient and EMS Mode of arrival: EMS Limitations: other (Patient uncooperative) History of Present Illness: HPI Narrative: Patient is a 33-year-old female presents to ED today via EMS triage as a possible allergic reaction. Patient's only complaint during my assessment is shortness of breath stating I need oxygen . She is satting 100% on room air. She is hyperventilating. She is very uncooperative lying face down on the bed. She does tell me she was at work when symptoms started. She states she ate a Cheese It cracker and some of a green smoothie. Patient denies tongue/lip swelling, rash/itching, or difficulty swallowing. She states she does have a history of anxiety and takes medications for this. No previous allergic reactions. States her whole body feels tingly . MD elicited complaint: shortness of breath Onset (ago): hour(s) Context: anxiety Timing: constant Severity: moderate Exacerbating factors: nothing Relieving factors: nothing Associated symptoms: Reports nausea; Deny abdominal pain, chest congestion, chest pain, extremity pain, fever(s), hemoptysis, orthopnea, palpitations, syncope or vomiting Treatment prior to arrival: none Related Data: Home oxygen amount: none Review of Systems 2 Const: Denies: fever(s), chills, body aches, fatigue or malaise ENMT: Denies: throat pain, uvular edema, enlarged tonsils, odynophagia, hoarseness, mouth pain, swelling of lips/tongue or oral sores Card: Denies: chest pain, palpitations, irregular heart rhythm, edema, swelling of feet/ankles, syncope, pre-syncope, dyspnea on exertion or orthopnea Resp: Reports: dyspnea; Denies: productive cough, non-productive cough, wheezing, stridor, pain on inspiration, change in phlegm color, hemoptysis or chest congestion GI: Reports: nausea; Denies: abdominal pain or vomiting Musc: Denies: neck pain, back pain, extremity pain or joint pain Skin/Breast: Denies: rash Neuro: Reports: other (states her whole body feels tingly ); Denies: headache(s) or weakness in extremities Psych: Reports: anxiety PFSH ED 2 PFSH: Medical History Acute pharyngitis Upper respiratory infection with cough and congestion Surgical History H/O knee surgery Left - removed a sewing needle H/O section Times x 2 H/O tubal ligation Family History Other Addiction CAD (coronary artery disease) Hypertension Psychiatric illness Social History Smoking and tobacco/nicotine status: current every day tobacco/nicotine user cigarettes Packs smoked per day: 0.50 Second hand smoke exposure: No Alcohol intake: current Alcohol intake frequency: holidays/special occasions only Substance/Drug Use: current Substance/Drug use frequency: daily Physical Exam 2 Const: COMMON NORMALS: patient oriented x3, alert and well nourished G ENERAL APPEARANCE: cooperative, anxious and other (uncooperative) NUTRITIONAL APPEARANCE: obese ORIENTATION/CONSCIOUSNESS: Yes awake, Yes oriented to person, Yes oriented to place and Yes oriented to time OTHER: hyperventilating HENMT: MOUTH: Normal oral and palatal mucosa present, lip normal, tongue normal and Normal salivary glands and ducts present THROAT: posterior oropharynx normal and tonsils normal; no uvular edema Eye: GENERAL EYE: appearance normal, both eyes and all related structures Chest: COMMONS NORMALS: normal inspection of the chest and normal palpation of entire chest wall Resp: COMMON NORMALS: clear to auscultation bilaterally EFFORT & INSPECTION: Yes tachypneic, No pursed lip breathing, No labored, No grunting, No stridor, No Actively coughing, No retractions and No uses accessory muscles A USCULTATION: clear to auscultation bilaterally Cardio: COMMON NORMALS: regular rate and regular rhythm RATE: regular rate RHYTHM: regular rhythm Extremity: GENERAL: Yes normal exam except as noted Neuro: TAPAN COMA SCALE: document GCS findings Lotus coma scale eye opening: Spontaneous Lotus coma scale verbal response: Orientated Lotus coma scale motor response: Obey commands Lotus coma scale total score: 15 COMMON NORMALS: patient oriented x3 SENSORIUM/ORIENTATION: Yes alert, Yes oriented to person, Yes oriented to place and Yes oriented to time Skin: COMMON NORMALS: no rashes or lesions noted GENERAL SKIN EXAM: no rashes or lesions noted Course 2 Reevaluation(s): Reevaluation #1: After IV Ativan and Zofran she is sleeping comfortably in NAD. Respirations are normal. Vital Signs: Vital signs: Vital Signs Temperature 97.8 F 08/28/23 09:46 Pulse Rate 69 08/28/23 10:17 Respiratory Rate 16 08/28/23 09:46 Blood Pressure 171/97 08/28/23 10:17 Pulse Oximetry 100 08/28/23 10:17 Oxygen Delivery Me thod Room Air 08/28/23 10:17 MDM - SOB/Dyspnea Medical Decision Making Patient is a 33-year-old female who presents today hyperventilating. Vital signs were stable upon arrival. She was satting 100% on room air. She has no signs or symptoms of anaphylactic reaction. Does have a longstanding history of anxiety. She was given 1mg of Ativan and Zofran and is now resting comfortably in no acute distress. She states she feels much better and would like to go home. Medical Records I reviewed the patient's medical records. Lab Data I reviewed the patient's lab results. 08/28/23 10:15 08/28/23 10:15 Labs/Radiology: Laboratory Results WBC 16.11 10^3/uL (3.29-11.43) H 08/28/23 10:15 RBC 4.56 10^6/uL (3.85-5.65) 08/28/23 10:15 Hgb 10.00 g/dL (11.27-16.99) L 08/28/23 10:15 Hct 34.3 % (36-47) L 08/28/23 10:15 MCV 75.2 fl (85-98) L 08/28/23 10:15 MCH 21.9 pg (27-33) L 08/28/23 10:15 MCHC 29.2 g/dL (30-55) L 08/28/23 10:15 RDW 21.6 % (12.1-15.1) H 08/28/23 10:15 Plt Count 443 10^3/cmm (157-399) H 08/28/23 10:15 MPV 10.8 fL (7.4-10.4) H 08/28/23 10:15 Neut % (Auto) 81.1 % 08/28/23 10:15 Lymph % (Auto) 13.2 % 08/28/23 10:15 [place] % (Auto) 3.5 % 08/28/23 10:15 Eos % (Auto) 1.6 % 08/28/23 10:15 Baso % (Auto) 0.2 % 08/28/23 10:15 Neut # (Auto) 13.05 10^3/uL (1.8-7.7) H 08/28/23 10:15 Lymph # (Auto) 2.1 10^3/uL (0.8-4.8) 08/28/23 10:15 [place] # (Auto) 0.6 10^3/uL (0.2-0.9) 08/28/23 10:15 Eos # (Auto) 0.3 10^3/uL (0.0-0.8) 08/28/23 10:15 Baso # (Auto) 0.0 10^3/uL (0.0-0.1) 08/28/23 10:15 Nucleated RBC % (auto) 0 % 08/28/23 10:15 Nucleated RBCs # 0.0 /100WBC 08/28/23 10:15 Sodium 137 mmol/L (136-145) 08/28/23 10:15 Potassium 3.4 mmol/L (3.5-5.1) L 08/28/23 10:15 Chloride 101 mmol/L (98-107) 08/28/23 10:15 Carbon Dioxide 18 mmol/L (22-29) L 08/28/23 10:15 Anion Gap 21.4 (5-19) H 08/28/23 10:15 BUN 10 mg/dL (6-20) 08/28/23 10:15 Creatinine 0.7 mg/dL (0.5-0.9) 08/28/23 10:15 GFR Calculation 118.1 mL/min (90-130) 08/28/23 10:15 Glucose 130 mg/dL (65-115) H 08/28/23 10:15 Calculated Osmolality 285 mOsm/kg (285-295) 08/28/23 10:15 Calcium 9.1 mg/dL (8.5-10.5) 08/28/23 10:15 Total Bilirubin 0.3 mg/dL (0.15-1.2) 08/28/23 10:15 AST 32 U/L (0-32) 08/28/23 10:15 ALT 31 U/L (0-33) 08/28/23 10:15 Alkaline Phosphatase 75 U/L (35-105) 08/28/23 10:15 Total Protein 8.1 g/dL (6.6-8.7) 08/28/23 10:15 Albumin 4.3 g/dL (3.5-5.2) 08/28/23 10:15 Globulin 3.8 g/dL (1.3-4.6) 08/28/23 10:15 All radiology interpretation(s) finalized by discharge Discharge Plan Discharge Patient Disposition: Home Clinical Impression: Acute hyperventilation syndrome Condition: Stable Prescriptions: No Action Xulane 150-35 mcg/24 hr patch weekly 1 patch transdermal Q7D Qty: 3 0RF Rx Instructions: apply once weekly for 3 weeks of a 4-week cycle (DME) AUTO-TRIRRATION CPAP SETTING 6-14CM See Rx Instructions .Route .MEDSUPPLY Qty: 1 0RF Rx Instructions: As directed Zoloft 100 mg tablet 100 mg PO QAM Rx Instructions: take with 50mg to =150mg amlodipine 5 mg tablet 5 mg PO QAM Iron (ferrous sulfate) 325 mg (65 mg iron) tablet 325 mg PO QAM Zoloft 50 mg tablet 50 mg PO QAM Rx Instructions: take with 100mg to =150mg brexpiprazole 2 mg tablet 2 mg PO QAM Discharge Orders: Discharge ED (Routine); Ordered 08/28/23 Ordered By: Claudia Mendosa Referrals: Jenifer Chatterjee DO [Primary Care Provider] - Patient Instructions: Hyperventilation (ED), Panic Attack (ED) Coding Level of Care Code ED Pediatric Registered Nurse for Mamie Segura
[2023-08-28 09:46] VITALS: BP 157/88; PULSE 80; RESP 16; TEMP 36.6; O2SAT 100
[2023-08-28] MEDS: ondansetron 2 mg/ML SDV 2 mL 4 MG IVP (10:15)
[2023-08-28 10:17] VITALS: BP 171/97; PULSE 69; O2SAT 100
[2023-08-28] MEDS: LORazepam 2 mg/mL INJ 10 mL MDV 1 MG IV (10:18)
[2023-08-28 10:23] LABS: Basophils % 0.2 %; Eosinophils # 0.3 10^3/uL (0.0-0.8); Eosinophils % 1.6 %; Hematocrit 34.3 % (36-47); Lymphocytes # 2.1 10^3/uL (0.8-4.8); Lymphocytes % 13.2 %; Mean Corpuscular HGB Conc 29.2 g/dL (30-55); Mean Corpuscular Hemoglobin 21.9 pg (27-33); Mean Corpuscular Volume 75.2 fl (85-98); Mean Platelet Volume 10.8 fL (7.4-10.4); Monocytes # 0.6 10^3/uL (0.2-0.9); Monocytes % 3.5 %; Neutrophils # 13.05 10^3/uL (1.8-7.7); Neutrophils % 81.1 %; Nucleated Red Blood Cells % 0 %; Platelet Count 443 10^3/cmm (157-399); Red Blood Count 4.56 10^6/uL (3.85-5.65); Red Cell Distribution Width 21.6 % (12.1-15.1); White Blood Count 16.11 10^3/uL (3.29-11.43)
[2023-08-28 10:49] LABS: Alanine Aminotransferase 31 U/L (0-33); Albumin Level 4.3 g/dL (3.5-5.2); Alkaline Phosphatase 75 U/L (35-105); Blood Urea Nitrogen 10 mg/dL (6-20); Calcium 9.1 mg/dL (8.5-10.5); Carbon Dioxide 18 mmol/L (22-29); Chloride 101 mmol/L (98-107); Creatinine Clr Calc Pharmacy 151.3269; Globulin 3.8 g/dL (1.3-4.6); Glomerular Filtration Rate 118.1 mL/min (90-130); Glucose 130 mg/dL (65-115); Osmolality Calculated 285 mOsm/kg (285-295); Sodium 137 mmol/L (136-145); Total Bilirubin 0.3 mg/dL (0.15-1.2); Total Protein 8.1 g/dL (6.6-8.7)
[2023-08-28 10:50] LABS: Anion Gap 21.4 (5-19); Aspartate Amino Transferase 32 U/L (0-32); Potassium 3.4 mmol/L (3.5-5.1)
[2023-08-28 11:10] VITALS: BP 151/71; PULSE 85; O2SAT 96
== END 2023-08-28 11:12 | disposition home or self-care (01) ==
PROVIDERS: Emergency Provider Physician Assistant; PCP Family Medicine
DX: F45.8 Other somatoform disorders (principal); F17.210 Nicotine dependence, cigarettes, uncomplicated
CPT/HCPCS: 71045; 80053; 85025; 96374; 96375; 99284; J2060; J2405

== ENCOUNTER → 2023-09-07 10:51 | Outpatient (BNVA) | payer BC, SELFPAY | PROVIDERS: PCP Family Medicine; Visit Provider Family Medicine | DX: Z13.6 Encounter for screening for cardiovascular disorders (principal) | CPT/HCPCS: 80048; 80061 ==

== ENCOUNTER 2023-09-29 10:19 | Oncology outpatient (recurring) (ONCR) | payer BC, SELFPAY ==
[2023-09-29 11:23] LABS: Basophils % 0.3 %; Eosinophils # 0.2 10^3/uL (0.0-0.8); Eosinophils % 2.3 %; Hematocrit 30.4 % (36-47); Lymphocytes # 1.9 10^3/uL (0.8-4.8); Lymphocytes % 18.2 %; Mean Corpuscular HGB Conc 28.9 g/dL (30-55); Mean Corpuscular Hemoglobin 21.5 pg (27-33); Mean Corpuscular Volume 74.3 fl (85-98); Mean Platelet Volume 10.7 fL (7.4-10.4); Monocytes # 0.4 10^3/uL (0.2-0.9); Monocytes % 4.1 %; Neutrophils # 7.71 10^3/uL (1.8-7.7); Neutrophils % 74.8 %; Nucleated Red Blood Cells % 0 %; Platelet Count 283 10^3/cmm (157-399); Red Blood Count 4.09 10^6/uL (3.85-5.65); Red Cell Distribution Width 19.8 % (12.1-15.1)
[2023-09-29 11:41] LABS: Alanine Aminotransferase 24 U/L (0-33); Alkaline Phosphatase 76 U/L (35-105); Anion Gap 9.9 (5-19); Aspartate Amino Transferase 21 U/L (0-32); Blood Urea Nitrogen 9 mg/dL (6-20); Calcium 8.1 mg/dL (8.5-10.5); Carbon Dioxide 27 mmol/L (22-29); Chloride 107 mmol/L (98-107); Creatinine Clr Calc Pharmacy 158.4146; Ferritin 8 ng/mL (15-150); Globulin 3.4 g/dL (1.3-4.6); Glomerular Filtration Rate 118.1 mL/min (90-130); Glucose 107 mg/dL (65-115); Iron 17 ug/dL (37-145); Osmolality Calculated 289 mOsm/kg (285-295); Percent Saturation 4.3 % (20-50); Potassium 3.9 mmol/L (3.5-5.1); Sodium 140 mmol/L (136-145); Total Bilirubin 0.2 mg/dL (0.15-1.2); Total Iron Binding Capacity 387 mcg/dl; Total Protein 7.4 g/dL (6.6-8.7); Unsaturated Iron Binding 370 ug/dL (112-347)
[2023-09-29 12:21] LABS: Folate Level 6.6 ng/mL (4.8-37.3)
== END 2023-10-27 23:59 | disposition home or self-care (01) ==
PROVIDERS: PCP Family Medicine Adult Medicine; Visit Provider Internal Medicine Hematology & Oncology
DX: D50.0 Iron deficiency anemia secondary to blood loss (chronic) (principal); N92.1 Excessive and frequent menstruation with irregular cycle; N63.21 Unspecified lump in the left breast, upper outer quadrant
CPT/HCPCS: 36415; 80053; 82728; 82746; 83540; 83550; 85025

== ENCOUNTER → 2023-11-13 11:58 | Outpatient (BNVA) | payer BC, SELFPAY | PROVIDERS: PCP Family Medicine Adult Medicine; Visit Provider Nurse Practitioner Women's Health | DX: Z12.4 Encounter for screening for malignant neoplasm of cervix (principal); Z11.3 Encounter for screening for infections with a predominantly sexual mode of transmission | CPT/HCPCS: 86592; 86803; 87340; 87491; 87591; 87624; 87806 ==

== ENCOUNTER 2024-01-11 09:12 | Oncology outpatient (recurring) (ONCR) | payer BC, SELFPAY ==
[2024-01-11 09:30] LABS: Basophils % 0.4 %; Eosinophils # 0.3 10^3/uL (0.0-0.8); Eosinophils % 3.4 %; Hematocrit 29.3 % (36-47); Lymphocytes % 26.3 %; Mean Corpuscular HGB Conc 28.3 g/dL (30-55); Mean Corpuscular Hemoglobin 19.6 pg (27-33); Mean Corpuscular Volume 69.3 fl (85-98); Mean Platelet Volume 10.4 fL (7.4-10.4); Monocytes # 0.4 10^3/uL (0.2-0.9); Monocytes % 5.5 %; Neutrophils # 4.95 10^3/uL (1.8-7.7); Neutrophils % 64.3 %; Nucleated Red Blood Cells % 0 %; Platelet Count 260 10^3/cmm (157-399); Red Blood Count 4.23 10^6/uL (3.85-5.65); White Blood Count 7.69 10^3/uL (3.29-11.43)
[2024-01-11 09:50] LABS: Alanine Aminotransferase 18 U/L (0-33); Alkaline Phosphatase 70 U/L (35-105); Anion Gap 15.9 (5-19); Aspartate Amino Transferase 15 U/L (0-32); Blood Urea Nitrogen 4 mg/dL (6-20); Calcium 8.7 mg/dL (8.5-10.5); Carbon Dioxide 22 mmol/L (22-29); Chloride 106 mmol/L (98-107); Ferritin 8 ng/mL (15-150); Globulin 3.3 g/dL (1.3-4.6); Glomerular Filtration Rate 141.1 mL/min (90-130); Glucose 97 mg/dL (65-115); Iron 19 ug/dL (37-145); Osmolality Calculated 287 mOsm/kg (285-295); Percent Saturation 4.7 % (20-50); Potassium 3.9 mmol/L (3.5-5.1); Sodium 140 mmol/L (136-145); Total Bilirubin 0.2 mg/dL (0.15-1.2); Total Iron Binding Capacity 396 mcg/dl; Total Protein 7.3 g/dL (6.6-8.7); Unsaturated Iron Binding 377 ug/dL (112-347)
== END 2024-01-27 23:59 | disposition home or self-care (01) ==
PROVIDERS: Nurse Practitioner Family; PCP Family Medicine Adult Medicine; Visit Provider Internal Medicine Hematology & Oncology
DX: D50.0 Iron deficiency anemia secondary to blood loss (chronic) (principal)
CPT/HCPCS: 36415; 80053; 82728; 83540; 83550; 85025

== ENCOUNTER 2024-02-26 08:00 | Oncology outpatient (recurring) (ONCR) | payer BC, SELFPAY ==
[2024-02-22 08:11] VITALS: BP 148/91; PULSE 99; RESP 18; TEMP 36.9; O2SAT 97
[2024-02-22] MEDS: iron sucrose 200 MG in sodium chloride 0.9% (100 ml) 100 ML 220 MG IV (08:26)
[2024-02-22] MEDS: sodium chloride 0.9% 250 ML 220 ML IV (08:26)
[2024-02-22 09:13] VITALS: BP 147/93; PULSE 69; RESP 16; TEMP 36.7; O2SAT 98
[2024-02-26 08:09] VITALS: BP 148/85; PULSE 75; RESP 16; TEMP 36.4; O2SAT 99
[2024-02-26] MEDS: iron sucrose 200 MG in sodium chloride 0.9% (100 ml) 100 ML 220 MG IV (08:24)
[2024-02-26 09:03] VITALS: BP 106/75; PULSE 79; RESP 16; TEMP 36.4; O2SAT 99
== END 2024-02-26 23:59 | disposition home or self-care (01) ==
PROVIDERS: PCP Family Medicine Adult Medicine; Visit Provider Internal Medicine Hematology & Oncology
DX: D50.0 Iron deficiency anemia secondary to blood loss (chronic) (principal); N92.1 Excessive and frequent menstruation with irregular cycle; N63.21 Unspecified lump in the left breast, upper outer quadrant
CPT/HCPCS: 96365; J1756; J7050

== ENCOUNTER 2024-03-06 08:33 | Oncology outpatient (recurring) (ONCR) | payer BC, SELFPAY ==
[2024-03-01] MEDS: iron sucrose 200 MG in sodium chloride 0.9% (100 ml) 100 ML 220 MG IV (10:23)
[2024-03-04] MEDS: iron sucrose 200 MG in sodium chloride 0.9% (100 ml) 100 ML 220 MG IV (14:10)
[2024-03-04 14:50] VITALS: BP 128/86; PULSE 71; TEMP 36.7; O2SAT 98
[2024-03-06 08:51] VITALS: BP 154/100; PULSE 67; RESP 16; TEMP 37.1; O2SAT 98
[2024-03-06] MEDS: iron sucrose 200 MG in sodium chloride 0.9% (100 ml) 100 ML 220 MG IV (09:01)
[2024-03-06 09:31] VITALS: BP 143/92; PULSE 63; RESP 16; TEMP 36.9; O2SAT 98
== END 2024-03-28 23:59 | disposition home or self-care (01) ==
PROVIDERS: PCP Family Medicine Adult Medicine; Visit Provider Internal Medicine Hematology & Oncology
DX: Z53.9 Procedure and treatment not carried out, unspecified reason (principal); Z79.899 Other long term (current) drug therapy; D50.9 Iron deficiency anemia, unspecified
CPT/HCPCS: 96365; J1756

== ENCOUNTER 2024-04-09 12:22 | Oncology outpatient (recurring) (ONCR) | payer BC, SELFPAY ==
[2024-04-09 12:33] LABS: Basophils # 0.1 10^3/uL (0.0-0.1); Basophils % 0.8 %; Eosinophils # 0.2 10^3/uL (0.0-0.8); Eosinophils % 3.1 %; Hematocrit 35.9 % (36-47); Lymphocytes # 2.6 10^3/uL (0.8-4.8); Lymphocytes % 35.8 %; Mean Corpuscular HGB Conc 29.5 g/dL (30-55); Mean Corpuscular Hemoglobin 24.1 pg (27-33); Mean Corpuscular Volume 81.8 fl (85-98); Mean Platelet Volume 10.4 fL (7.4-10.4); Monocytes # 0.4 10^3/uL (0.2-0.9); Monocytes % 4.9 %; Neutrophils # 3.97 10^3/uL (1.8-7.7); Neutrophils % 55.3 %; Nucleated Red Blood Cells % 0 %; Platelet Count 309 10^3/cmm (157-399); Red Blood Count 4.39 10^6/uL (3.85-5.65); Red Cell Distribution Width 25.2 % (12.1-15.1); White Blood Count 7.18 10^3/uL (3.29-11.43)
[2024-04-09 12:51] LABS: Alanine Aminotransferase 16 U/L (0-33); Alkaline Phosphatase 60 U/L (35-105); Anion Gap 11.5 (5-19); Aspartate Amino Transferase 14 U/L (0-32); Blood Urea Nitrogen 6 mg/dL (6-20); Calcium 8.5 mg/dL (8.5-10.5); Carbon Dioxide 27 mmol/L (22-29); Chloride 108 mmol/L (98-107); Ferritin 30 ng/mL (15-150); Globulin 2.3 g/dL (1.3-4.6); Glomerular Filtration Rate 140.2 mL/min (90-130); Glucose 94 mg/dL (65-115); Iron 29 ug/dL (37-145); Osmolality Calculated 293 mOsm/kg (285-295); Potassium 3.5 mmol/L (3.5-5.1); Sodium 143 mmol/L (136-145); Total Bilirubin 0.2 mg/dL (0.15-1.2); Total Iron Binding Capacity 321 mcg/dl; Total Protein 6.3 g/dL (6.6-8.7); Unsaturated Iron Binding 292 ug/dL (112-347)
== END 2024-04-27 23:59 | disposition home or self-care (01) ==
PROVIDERS: Nurse Practitioner Family; PCP Family Medicine Adult Medicine; Visit Provider Internal Medicine Hematology & Oncology
DX: D50.0 Iron deficiency anemia secondary to blood loss (chronic); N92.1 Excessive and frequent menstruation with irregular cycle; N63.21 Unspecified lump in the left breast, upper outer quadrant; Z79.899 Other long term (current) drug therapy
CPT/HCPCS: 36415; 80053; 82728; 83540; 83550; 85025

== ENCOUNTER 2024-05-13 08:03 | Oncology outpatient (recurring) (ONCR) | payer BC, SELFPAY ==
[2024-05-02] MEDS: iron sucrose 200 MG in sodium chloride 0.9% (100 ml) 100 ML 220 MG IV (14:35)
[2024-05-02 15:16] VITALS: BP 137/87; RESP 18; TEMP 36.6; O2SAT 98
[2024-05-06 15:05] VITALS: BP 149/96; PULSE 89; RESP 16; TEMP 36.8; O2SAT 96
[2024-05-06] MEDS: iron sucrose 200 MG in sodium chloride 0.9% (100 ml) 100 ML 220 MG IV (15:12)
[2024-05-06 15:52] VITALS: BP 153/99; PULSE 69; TEMP 36.1; O2SAT 96
[2024-05-08 08:17] VITALS: BP 142/93; PULSE 80; RESP 17; TEMP 36.7; O2SAT 98
[2024-05-08] MEDS: iron sucrose 200 MG in sodium chloride 0.9% (100 ml) 100 ML 220 MG IV (08:37)
[2024-05-08 09:15] VITALS: BP 178/92; PULSE 79; RESP 16; TEMP 36.6; O2SAT 96
[2024-05-10 08:24] VITALS: BP 162/84; PULSE 71; RESP 17; TEMP 36.7; O2SAT 98
[2024-05-10] MEDS: iron sucrose 200 MG in sodium chloride 0.9% (100 ml) 100 ML 220 MG IV (08:30)
[2024-05-13 08:40] VITALS: BP 161/105; PULSE 74; RESP 16; TEMP 36.9; O2SAT 99
[2024-05-13] MEDS: iron sucrose 200 MG in sodium chloride 0.9% (100 ml) 100 ML 220 MG IV (09:03)
[2024-05-13 09:44] VITALS: BP 159/106; PULSE 73; RESP 18; TEMP 36; O2SAT 93
== END 2024-05-28 23:59 | disposition home or self-care (01) ==
PROVIDERS: PCP Family Medicine Adult Medicine; Visit Provider Internal Medicine Medical Oncology
DX: Z53.9 Procedure and treatment not carried out, unspecified reason (principal); Z79.899 Other long term (current) drug therapy; D50.9 Iron deficiency anemia, unspecified
CPT/HCPCS: 96365; J1756

== ENCOUNTER 2024-06-13 09:25 | Oncology outpatient (recurring) (ONCR) | payer BC, SELFPAY ==
[2024-06-13 09:49] LABS: Basophils % 0.5 %; Eosinophils # 0.2 10^3/uL (0.0-0.8); Eosinophils % 3.9 %; Lymphocytes % 35.6 %; Mean Corpuscular HGB Conc 31.3 g/dL (30-55); Mean Corpuscular Hemoglobin 27.1 pg (27-33); Mean Corpuscular Volume 86.5 fl (85-98); Mean Platelet Volume 11.1 fL (7.4-10.4); Monocytes # 0.2 10^3/uL (0.2-0.9); Monocytes % 3.7 %; Neutrophils # 3.15 10^3/uL (1.8-7.7); Neutrophils % 56.1 %; Nucleated Red Blood Cells % 0 %; Platelet Count 223 10^3/cmm (157-399); Red Blood Count 4.51 10^6/uL (3.85-5.65); Red Cell Distribution Width 16.5 % (12.1-15.1); White Blood Count 5.62 10^3/uL (3.29-11.43)
[2024-06-13 10:09] LABS: Alanine Aminotransferase 24 U/L (0-33); Albumin Level 4.1 g/dL (3.5-5.2); Alkaline Phosphatase 70 U/L (35-105); Anion Gap 13.7 (5-19); Aspartate Amino Transferase 18 U/L (0-32); Blood Urea Nitrogen 6 mg/dL (6-20); Calcium 8.9 mg/dL (8.5-10.5); Carbon Dioxide 24 mmol/L (22-29); Chloride 106 mmol/L (98-107); Ferritin 177 ng/mL (15-150); Globulin 3.5 g/dL (1.3-4.6); Glomerular Filtration Rate 140.2 mL/min (90-130); Glucose 96 mg/dL (65-115); Iron 41 ug/dL (37-145); Osmolality Calculated 287 mOsm/kg (285-295); Percent Saturation 14.3 % (20-50); Potassium 3.7 mmol/L (3.5-5.1); Sodium 140 mmol/L (136-145); Total Bilirubin 0.2 mg/dL (0.15-1.2); Total Iron Binding Capacity 285 mcg/dl; Total Protein 7.6 g/dL (6.6-8.7); Unsaturated Iron Binding 244 ug/dL (112-347)
== END 2024-06-28 23:59 | disposition home or self-care (01) ==
PROVIDERS: Nurse Practitioner Family; PCP Family Medicine Adult Medicine; Visit Provider Internal Medicine Medical Oncology
DX: Z53.9 Procedure and treatment not carried out, unspecified reason; D50.0 Iron deficiency anemia secondary to blood loss (chronic)
CPT/HCPCS: 36415; 80053; 82728; 83540; 83550; 85025

== ENCOUNTER → 2024-09-03 09:30 | Outpatient (BNVA) | payer BC, SELFPAY | PROVIDERS: PCP Family Medicine; Visit Provider Family Medicine | DX: D50.9 Iron deficiency anemia, unspecified (principal); D50.0 Iron deficiency anemia secondary to blood loss (chronic) | CPT/HCPCS: 80053; 80061; 82728; 83550; 85025 ==

== ENCOUNTER → 2024-12-04 10:37 | Outpatient (BNVA) | payer BC, SELFPAY | PROVIDERS: PCP Family Medicine; Visit Provider Nurse Practitioner Women's Health | DX: Z01.419 Encounter for gynecological examination (general) (routine) without abnormal findings (principal) | CPT/HCPCS: 86592; 86705; 86706; 86709; 86803; 87340; 87806 ==

== ENCOUNTER → 2025-03-06 08:19 | Outpatient (BNVA) | payer BC, SELFPAY | PROVIDERS: PCP Family Medicine; Visit Provider Family Medicine | DX: D50.0 Iron deficiency anemia secondary to blood loss (chronic) (principal); D50.9 Iron deficiency anemia, unspecified | CPT/HCPCS: 82728; 83550; 85025 ==